=== PATIENT | male | born 1975 | race Caucasian/White ===

== ENCOUNTER 2019-02-18 07:25 | Inpatient (IN) ==
[2019-02-18] MEDS ORDERED: LIDOCAINE 1%/EPI INJ 20 ML VIAL ONE (07:59)
[2019-02-18] MEDS ORDERED: DIPH/TET/ACEL PERT BOOSTER VACCINE 0.5 ML VIAL IM ONE (08:06)
[2019-02-18] MEDS ORDERED: CEFTAROLINE 600 MG in SODIUM CHLORIDE 0.9% 100 ML IV STA (08:07)
[2019-02-18 08:39] LABS: Basophils # 0.1 10*3/uL (0.0-0.2); Basophils % 0.6 % (0.0-0.8); Eosinophils # 0.2 10*3/uL (0.0-0.87); Eosinophils % 1.8 % (0.00-10.9); Hematocrit 40.8 VOL% (42.0-52.0); Immature Granulocytes % 0.3 %; Immature Granulocytes Absolute 0.03 #; Lymphocytes # 0.9 10*3/uL (1.4-4.0); Mean Corpuscular HGB Conc 34.3 GM/DL (32-36); Mean Corpuscular Volume 92.5 FL (87-102); Mean Platelet Volume 8.6 FL (9.6-12.0); Monocytes % 8.4 % (1.7-12.7); Neutrophils % 80.9 % (38.7-73.9); Platelet Count 265 T/CUMM (130-400); Red Blood Count 4.41 MC/CUMM (3.8-5.5); White Blood Count 10.7 T/CUMM (4-12)
[2019-02-18 08:56] LABS: Calcium 8.8 MG/DL (8.5-10.1); Osmolality,Calculated 273.7 MOS/KG (273-304)
[2019-02-18 10:44] LABS: Barbiturates Screen,Urine Negative (Negative); Benzodiazepines Screen,Urine Negative (Negative); Cannabinoid Screen,Urine Positive (Negative); Opiate Screen,Urine Negative (Negative); Phencyclidine Screen,Urine Negative (Negative)
[2019-02-18] MEDS ORDERED: DOCUSATE SODIUM 100 MG CAPSULE PO PRN (12:56)
[2019-02-18] MEDS ORDERED: ACETAMINOPHEN 325 MG TABLET PO PRN (12:56)
[2019-02-18] MEDS ORDERED: ONDANSETRON 4 MG/2 ML VIAL IV PRN (12:56)
[2019-02-18] MEDS ORDERED: ENOXAPARIN 40 MG/0.4 ML SYRINGE SUBCUT SCH (13:00)
[2019-02-18] MEDS ORDERED: CALAMINE LOTION 180 ML BOTTLE TOP PRN (13:37)
[2019-02-18] MEDS ORDERED: hydrALAZINE 20 MG/1 ML VIAL IV PRN (14:07)
[2019-02-18] MEDS ORDERED: chlordiazePOXIDE 10 MG CAPSULE PO PRN (14:14)
[2019-02-18] MEDS: DEXTROSE 5% NACL 0.45% 1,000 ML IV SCH (15:04)
[2019-02-18] MEDS: VANCOMYCIN INJ 1,000 MG in SODIUM CHLORIDE 0.9% 250 ML IV SCH ×2 (15:04→21:36)
[2019-02-18] MEDS: CETIRIZINE 10 MG TABLET PO SCH (15:05)
[2019-02-18] MEDS: NICOTINE 14 MG/24 HR PATCH TRANSDERM SCH (15:05)
[2019-02-18] MEDS: PIPERACILLIN/TAZOBACTAM 3,375 MG in SODIUM CHLORIDE 0.9% 100 ML IV SCH (17:47)
[2019-02-18] MEDS: FOLIC ACID 1 MG TABLET PO SCH (21:36)
[2019-02-19] MEDS: PIPERACILLIN/TAZOBACTAM 3,375 MG in SODIUM CHLORIDE 0.9% 100 ML IV SCH ×3 (00:42→16:15)
[2019-02-19 06:56] LABS: Basophils # 0.1 10*3/uL (0.0-0.2); Basophils % 0.7 % (0.0-0.8); Eosinophils # 0.2 10*3/uL (0.0-0.87); Eosinophils % 2.4 % (0.00-10.9); Hematocrit 40.1 VOL% (42.0-52.0); Hemoglobin 13.6 GM/DL (14.0-18.0); Immature Granulocytes % 0.5 %; Immature Granulocytes Absolute 0.04 #; Lymphocytes # 0.8 10*3/uL (1.4-4.0); Lymphocytes % 9.4 % (21.2-54.2); Mean Corpuscular HGB Conc 33.9 GM/DL (32-36); Mean Corpuscular Volume 92.8 FL (87-102); Mean Platelet Volume 8.6 FL (9.6-12.0); Monocytes % 9.5 % (1.7-12.7); Neutrophils % 77.5 % (38.7-73.9); Platelet Count 257 T/CUMM (130-400); Red Blood Count 4.32 MC/CUMM (3.8-5.5); Red Cell Distribution Width 13.1 % (9.3-17.3); White Blood Count 8.6 T/CUMM (4-12)
[2019-02-19 07:22] LABS: Calcium 8.3 MG/DL (8.5-10.1); Osmolality,Calculated 278.4 MOS/KG (273-304)
[2019-02-19 07:24] LABS: Albumin 3.1 G/DL (3.4-5.0); Bilirubin,Direct 0.17 MG/DL (0.0-0.20); Bilirubin,Indirect 0.4 MG/DL (0.0-1.0); Bilirubin,Total 0.6 MG/DL (0.2-1.0)
[2019-02-19] MEDS ORDERED: FAMOTIDINE 20 MG TABLET PO ONE (09:55)
[2019-02-19] MEDS ORDERED: MIDAZOLAM 2 MG/2 ML VIAL ONE (11:02)
[2019-02-19] MEDS ORDERED: ONDANSETRON 4 MG/2 ML VIAL ONE (11:02)
[2019-02-19] MEDS ORDERED: SEVOFLURANE 1 UNIT/15 MINUTE INH ONE (11:02)
[2019-02-19] MEDS ORDERED: LIDOCAINE 100 MG/5 ML SYRINGE ONE (11:02)
[2019-02-19] MEDS ORDERED: fentaNYL 100 MCG/2 ML VIAL ONE (11:02)
[2019-02-19] MEDS ORDERED: PROPOFOL 200 MG/20 ML VIAL IV ONE (11:02)
[2019-02-19] MEDS: MULTIVITAMIN (BEROCCA) TABLET PO SCH (11:49)
[2019-02-19] MEDS: CETIRIZINE 10 MG TABLET PO SCH (11:50)
[2019-02-19] MEDS: NICOTINE 14 MG/24 HR PATCH TRANSDERM SCH (11:50)
[2019-02-19] MEDS: VANCOMYCIN INJ 1,000 MG in SODIUM CHLORIDE 0.9% 250 ML IV SCH ×3 (13:38→21:32)
[2019-02-19] MEDS: DEXTROSE 5% NACL 0.45% 1,000 ML IV SCH (16:17)
[2019-02-19] MEDS: FOLIC ACID 1 MG TABLET PO SCH (21:32)
[2019-02-20] MEDS: PIPERACILLIN/TAZOBACTAM 3,375 MG in SODIUM CHLORIDE 0.9% 100 ML IV SCH ×2 (00:29→10:11)
[2019-02-20] MEDS: VANCOMYCIN INJ 1,000 MG in SODIUM CHLORIDE 0.9% 250 ML IV SCH (05:04)
[2019-02-20 05:48] LABS: Basophils # 0.1 10*3/uL (0.0-0.2); Basophils % 0.9 % (0.0-0.8); Eosinophils # 0.3 10*3/uL (0.0-0.87); Eosinophils % 3.9 % (0.00-10.9); Hematocrit 38.8 VOL% (42.0-52.0); Hemoglobin 12.8 GM/DL (14.0-18.0); Immature Granulocytes % 0.5 %; Immature Granulocytes Absolute 0.03 #; Lymphocytes # 0.9 10*3/uL (1.4-4.0); Lymphocytes % 13.3 % (21.2-54.2); Mean Corpuscular Volume 94.6 FL (87-102); Mean Platelet Volume 8.8 FL (9.6-12.0); Neutrophils % 70.4 % (38.7-73.9); Platelet Count 252 T/CUMM (130-400); Red Cell Distribution Width 13.1 % (9.3-17.3); White Blood Count 6.6 T/CUMM (4-12)
[2019-02-20 06:01] LABS: Calcium 8.2 MG/DL (8.5-10.1)
[2019-02-20] MEDS ORDERED: MUPIROCIN 2% OINT 22 GM TUBE TOP SCH (09:00)
[2019-02-20] MEDS: MULTIVITAMIN (BEROCCA) TABLET PO SCH (10:11)
[2019-02-20] MEDS: CETIRIZINE 10 MG TABLET PO SCH (10:11)
[2019-02-20] MEDS: NICOTINE 14 MG/24 HR PATCH TRANSDERM SCH (10:12)
[2019-02-20 11:08] VITALS: BP 120/76
[2019-02-20] MEDS ORDERED: SULFAMETHOX/TRIMETHOPRIM 800-160 MG TABLET PO SCH (21:00)
== END 2019-02-20 12:54 | disposition home or self-care (01) | DRG 571 ==
LOC: N.EDINP 07:25 → N.ED 07:25 → N.5E 10:21
PROVIDERS: ADMIT Hospitalist; ATTEND Hospitalist